=== PATIENT | male | born 1955 | race Hispanic/Latino ===

== ENCOUNTER 2019-11-03 22:27 | Emergency (ER) | payer BC ==
[~2019-11-03] VITALS: Ht 182.9 cm; Wt 81.6 kg
--- NOTE | 2019-11-03 22:55 | Emergency Department Note ---
History of Present Illnes History of Present Illness Chief Complaint: LACERATION OF FINGER History of Present Illness This is a 64 year old male, with no significant PMH, who presents for evaluation of a laceration of the palmar aspect of the left middle finger. Pt states that he was getting out a food service this evening, and inadvertently cut the distal aspect of the left middle finger. The incident occurred @ 1 hour [employer], and patient has been holding a paper towel over the wound. He has not cleaned the wound. He denies numbness or tingling of this finger or the left hand. 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 Any updates have been documented here. Past Medical History Recent Fever: No Clinical Suspicion of Infectio: No New/Unexplained Change in Ment: No Past Medical History: None Social History Smoking Cessation: Never Smoker Alcohol Use: None Any Illegal Drug Use: No TB Exposure/Symptoms: No Physically hurt or threatened: No Family History Family history of heart diseas: No Other Last Tetanus: unknown Any Pre-Existing Lines (PICC,: No Is patient up to date on immun: No Review of Systems Review of Systems Constitutional: no symptoms EENTM: no symptoms Cardiovascular: no symptoms Respiratory: no symptoms Gastrointestinal: no symptoms Musculoskeletal: no symptoms Neurological: no symptoms Psychological: no symptoms Hematological/Lymphatic: no symptoms Review of other systems All other systems reviewed and negative. Physical Exam Related Data Allergies: Coded Allergies: No Known Allergies (Unverified , 11/03/19) Vital signs reviewed: Yes Physical Exam CONSTITUTIONAL Constitutional: well-developed, well-nourished HENT HENT: normocephalic, atraumatic, oropharynx clear/moist, nose normal HENT L/R: left ext ear normal, right ext ear normal EYES Eyes: PERRL, conjunctivae normal NECK Neck: ROM normal PULMONARY Pulmonary: effort normal, breath sounds normal CARDIOVASCULAR Cardiovascular: regular rhythm, heart sounds normal, capillary refill normal, normal rate GASTROINTESTINAL GENITOURINARY SKIN Skin: other (2 cm area of complete skin avulsion on the palmar surface of the distal aspect of the left middle finger, oozing blood; cap refill < 2 sec. No nail damage;) MUSCULOSKELETAL Musculoskeletal: ROM normal NEUROLOGICAL Neurological: alert, oriented x 3, no gross motor or sensory deficits PSYCHOLOGICAL Psychological: mood/affect normal, judgement normal Procedures Laceration Laceration: Laceration 1 Site: hand (left middle finger) Side: left Description: other (superficial layer of skin av) Pre-repair: irrigated extensively Skin layer closed with: other (Due to complete avulsion of a superficial layer of skin, there is nothing to suture. Silver Nitrate was initially used to try and stop the continued oozing from the site. This was painful and unsuccessful, so Surgicel was applied to the wound with excellent hemostasis. Pt tolerated well. ) Critical Care Time Subsequent provider I assumed direction of critical care for this patient from another provider of my specialty. Assessment & Plan Assessment & Plan Final Impression: (1) LACERATION W/O FB OF FINGER W/O DAMAGE TO NAIL, INIT (2) PAIN IN LEFT FINGER(S) Assessment & Plan - Pt with layer of "skin avulsion" of the left middle finger, distal aspect. Wound cleaned and hemostasis achieved with Surgicel. - tetanus injection uptdated. Keep dressing on and in place until late tomorrow afternoon, then you may remove, gently wash with soap and water, dry , apply over the counter antibiotic ointment, and then cover with a bandaid or dressing. After this, repeat this twice daily, until healed. Keep the left hand elevated to the level of the heart, for the next several days, to help with the pain. Follow-up with any signs of infection, including redness, drainage, fever, or increased pain. Depart Disposition: HOME, SELF-USP Meds Active Scripts Acetaminophen With Codeine (TYLENOL WITH CODEINE #3 TABLET) 1 Each Tablet, 1-2 TAB PO Q6H for pain, #15 TAB 0 Refills Prov:WALT JESUS MD 11/03/19 WALT JESUS MD November 03, 2019 22:54
[2019-11-03] MEDS ORDERED: BACITRACIN ZINC 0.9GM TP ONE (23:15)
[2019-11-03] MEDS ORDERED: SILVER NITRATE SWABS ONE (23:16)
[2019-11-03] MEDS ORDERED: TETANUS/DIPHTHERIA TOX ADULT 0.5 ML SYR ONE (23:36)
[2019-11-03] MEDS ORDERED: HYDROCODONE/APAP 5MG-325MG TAB ONE (23:36)
[2019-11-03] MEDS ORDERED: TYLENOL WITH C1 EACH PO (23:39)
[2019-11-03] MEDS ORDERED: DIPHTH/TETANUS/ACEL. PERTUSSIS 0.5 ML SYR IM ONE (23:45)
[2019-11-03] MEDS ORDERED: SILVER NITRATE SWABS TOP ONE (23:45)
[2019-11-03] MEDS ORDERED: HYDROCODONE/APAP 5MG-325MG TAB PO ONE (23:45)
[2019-11-04] MEDS ORDERED: BACITRACIN ZINC 15 GM OINT TOP SCH (09:00)
== END 2019-11-03 23:50 | disposition home or self-care (01) ==
LOC: FSED 22:27
DX: S61.213A Laceration without foreign body of left middle finger without damage to nail, initial encounter (principal); W26.8XXA Contact with other sharp object(s), not elsewhere classified, initial encounter; Y92.000 Kitchen of unspecified non-institutional (private) residence as the place of occurrence of the external cause
CPT/HCPCS: 90714